=== PATIENT | female | born 1980 | race Caucasian/White ===

== ENCOUNTER 2022-06-11 11:59 | Emergency (ER) | payer MEDICARE, MEDICAID, SELFPAY ==
[2022-06-11 12:09] VITALS: BP 139/78; PULSE 97; RESP 20; TEMP 37.4; O2SAT 98
[2022-06-11 12:19] VITALS: BP 139/78; PULSE 97; RESP 20; TEMP 37.4; O2SAT 98
--- NOTE | 2022-06-11 12:20 | ED.GENADULT ---
HPI - General Adult General Chief complaint: Skin/Abscess/Foreign Body Stated complaint: bumps Time Seen by Provider: 06/11/22 12:20 Source: patient, RN notes reviewed and old records reviewed Mode of arrival: ambulatory Limitations: no limitations History of Present Illness HPI narrative: 42 year old female who presents to express care with complaints of back pain and having some lesions on her face for 2 days states concerned that she has Monkey Pox. She states that she was around someone who supposedly had Monkey Pox but he was cleared, she drove his car and sat in in his car. Lesion on face X3 with scabbing that are small appear healing acne,no pustules noted on back, torso, or on extremities..She also reports that she has some burning with urination and wants her urine checked. Patient's speech fast and noted some slurring of words, Patient has reported history of anxiety and depression and Bipolar disease. MD complaint: lesions on face, some back pain and urinary burning Onset (ago): day(s) (2) Location: back (mid back) Radiation: non-radiation Severity scale (1-10): 5 Treatments prior to arrival: other (tylenol) Related Data Home Medications Medication Instructions Recorded Confirmed cariprazine 4.5 mg capsule 4.5 mg PO DAILY 06/11/22 06/11/22 (Vraylar) famotidine 20 mg tablet 20 mg PO DAILY 06/11/22 06/11/22 pantoprazole 40 mg tablet,delayed 40 mg PO QAM 06/11/22 06/11/22 release topiramate 50 mg tablet 50 mg PO DAILY 06/11/22 06/11/22 Allergies Allergy/AdvReac Type Severity Reaction Status Date / Time meloxicam Allergy Severe Rash Verified 06/11/22 12:17 amitriptyline Allergy Mild RASH, Verified 06/11/22 12:17 VOMITING latex Allergy Mild UNKNOWN Verified 06/11/22 12:17 prochlorperazine Allergy Mild SEIZURE Verified 06/11/22 12:17 tramadol Allergy Mild RASH, Verified 06/11/22 12:17 VOMITING acetaminophen AdvReac Intermediate Other Verified 06/11/22 12:17 codeine AdvReac Intermediate Other Verified 06/11/22 12:17 Contrast Media Allergy Mild UNKNOWN Uncoded 06/03/18 05:55 Review of Systems Review of Systems: CONSTITUTIONAL: Denies fever, chills, or sweats. EYES: Denies visual changes, redness, or discharge. ENT: Denies rhinorrhea, congestion, sore throat, or otalgia. CARDIOVASCULAR: Denies chest pain, palpitations, or edema. RESPIRATORY: Denies cough or dyspnea. GASTROINTESTINAL: Denies abdominal pain, nausea, vomiting, or diarrhea. GENITOURINARY: Denies dysuria or hematuria. SKIN: Denies rash or itching.lesions X3 on face appear to be healing acne with some scabbing MUSCULOSKELETAL: reports mid back pain, joint pain, or myalgia. NEUROLOGIC: Denies headache, numbness, or weakness. PSYCHIATRIC: positive history of anxiety or depression. All systems reviewed & are unremarkable except as noted in HPI and below PMFSH Past Medical History Medical History (Updated 06/12/22 @ 08:06 by Emeli Hernandez NP) Anxiety and depression Arrhythmia Asthma Bipolar 1 disorder, mixed Fracture of patella, right, closed Ganglion cyst of dorsum of left wrist excision GERD (gastroesophageal reflux disease) Ulcer Social History Social History (Updated 06/12/22 @ 07:49 by Emeli Hernandez NP) Smoking packs per day: 1 Smoking cigarettes per day: 20.0 Years smoked: 31 Smoking pack-years: 31.00 Smoking status: Current every day smoker Tobacco type: cigarettes Alcohol intake: unknown Substance use: unknown Gender identity (if verbalized by the patient): Female Comments At time of signature, agree with nursing past medical, surgical, social and family history. There is no relevant family history pertinent to the presenting complaint Exam Narrative: GENERAL: Well-appearing, well-nourished, and in no acute distress. HEAD: Normocephalic, atraumatic. EYES: PERRLA and EOMI. ENT: Nares clear, no rhinorrhea or epistaxis. Mucous membranes moist.TM's normal with good light reflex, throat pink wit
== END 2022-06-11 12:51 | disposition home or self-care (01) ==
PROVIDERS: Emergency Provider Registered Nurse; PCP Internal Medicine
DX: R30.0 Dysuria (principal); L70.9 Acne, unspecified; F17.210 Nicotine dependence, cigarettes, uncomplicated; J45.909 Unspecified asthma, uncomplicated; K21.9 Gastro-esophageal reflux disease without esophagitis
CPT/HCPCS: 81003; 99203; G0463